=== PATIENT | male | born 1995 | race Two or more races ===

== ENCOUNTER 2019-05-01 10:01 | Emergency (ER) | payer MEDICAID ==
[~2019-05-01] VITALS: Ht 170.2 cm; Wt 72.7 kg
[2019-05-01 10:31] VITALS: BP 126/73
[2019-05-01] MEDS ORDERED: ONDANSETRON HCL 4 MG TABLET PO ONE (11:00)
[2019-05-01] MEDS ORDERED: ACETAMINOPHEN 500 MG TABLET PO ONE (11:00)
== END 2019-05-01 11:15 | disposition home or self-care (01) ==
LOC: EMS 10:04
DX: H66.92 Otitis media, unspecified, left ear (principal); H60.92 Unspecified otitis externa, left ear; R42 Dizziness and giddiness
CPT/HCPCS: 99283; Q0162